=== PATIENT | female | born 1950 | race Caucasian/White ===

== ENCOUNTER 2022-08-30 20:12 | Emergency (ER) | payer MEDICARE, OTHER ==
[~2022-08-30] VITALS: Ht 160 cm; Wt 79.4 kg
[2022-08-30 20:35] LABS: BASOPHILS # (AUTO) 0.1 10^3/uL (0.0-0.1); BASOPHILS % (AUTO) 1 % (0-10); EOSINOPHILS # (AUTO) 0.4 10^3/uL (0.0-0.3); EOSINOPHILS % (AUTO) 4 % (0-10); HEMATOCRIT 49 % (35-52); HEMOGLOBIN 16.5 g/dL (11.5-16.0); LYMPHOCYTES # (AUTO) 3.8 10^3/uL (1.0-4.0); LYMPHOCYTES % (AUTO) 39 % (12-44); MEAN CORPUSCULAR HEMOGLOBIN 31 pg (25-34); MEAN CORPUSCULAR HGB CONC 34 g/dL (32-36); MEAN CORPUSCULAR VOLUME 92 fL (80-99); MONOCYTES # (AUTO) 0.6 10^3/uL (0.0-1.0); MONOCYTES % (AUTO) 7 % (0-12); NEUTROPHILS # (AUTO) 4.9 10^3/uL (1.8-7.8); NEUTROPHILS % (AUTO) 50 % (42-75); PLATELET COUNT 336 10^3/uL (130-400); WHITE BLOOD COUNT 9.9 10^3/uL (4.3-11.0)
[2022-08-30 20:48] LABS: FIBRIN DEGRADATION PRODUCTS 0.75 UG/ML (0.00-0.49); INR 0.9 (0.8-1.4); PROTHROMBIN TIME PATIENT 12.8 SEC (12.2-14.7)
[2022-08-30 20:54] LABS: BILIRUBIN,URINE NEGATIVE (NEGATIVE); CLARITY,URINE CLEAR; COLOR,URINE YELLOW; GLUCOSE, URINE (UA) NEGATIVE (NEGATIVE); KETONES,URINE NEGATIVE (NEGATIVE); LEUKOCYTE ESTERASE ,URINE NEGATIVE (NEGATIVE); NITRITE,URINE NEGATIVE (NEGATIVE); PH,URINE 6.5 (5-9); PROTEIN,URINE NEGATIVE (NEGATIVE)
[2022-08-30 20:55] LABS: ALANINE AMINOTRANSFERASE 15 U/L (0-55); ALKALINE PHOSPHATASE 104 U/L (40-136); BILIRUBIN,TOTAL 0.4 MG/DL (0.1-1.0); BUN/CREATININE RATIO 13; CALCIUM 9.7 MG/DL (8.5-10.1); CARBON DIOXIDE 25 MMOL/L (21-32); CHLORIDE 104 MMOL/L (98-107); CREATININE SERUM 0.84 MG/DL (0.60-1.30); GFR ESTIMATED 75; GLUCOSE 102 MG/DL (70-105); POTASSIUM 3.8 MMOL/L (3.6-5.0); SODIUM 142 MMOL/L (135-145); TOTAL PROTEIN 7.7 GM/DL (6.4-8.2)
[2022-08-30 21:05] LABS: BACTERIA,URINE NEGATIVE /HPF; SQUAMOUS EPITHELIAL CELL,UR 0-2 /HPF
--- NOTE | 2022-08-30 21:14 | Diagnostic Imaging Report ---
INDICATION: Stroke. FINDINGS: There is cardiomegaly. There is some minimal venous congestion. There is no pleural effusion or pneumothorax. The mediastinum is unremarkable. IMPRESSION: Cardiomegaly and some minimal central pulmonary venous congestion. Dictated by: Dictated on workstation # [id number]
--- NOTE | 2022-08-30 21:15 | ED Neurological Problem ---
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 PT DENIES PAIN, A&OX4. Source: patient Exam Limitations: no limitations Allergies and Home Medications Allergies Coded Allergies: Nvvjkvt-IZX-ArB Reductase Inhibitor (Verified Allergy, Unknown, 08/30/22) Past Owbaxro-Yfkmak-Hgsyev Hx Patient Social History Tobacco Use?: Yes Tobacco type used: Cigarettes Smoking Status: Current Everyday Smoker Use of E-Cig and/or Vaping dev: No Substance use?: No Alcohol Use?: No Immunizations Up To Date Influenza Vaccine Up-to-Date: No; Not Current First/Initial COVID19 Vaccinat: NONE Second COVID19 Vaccination Shyam: NONE Third COVID19 Vaccination Date: NONE COVID19 Vaccine Plate Former: NONE Physical Exam Vital Signs Vital Signs - First Documented 08/30/22 20:13 Temp 36.1 Pulse 88 Resp 95 B/P (MAP) 146/79 (101) Pulse Ox 95 O2 Delivery Room Air Capillary Refill : Less Than 3 Seconds Height, Weight, BMI Height: '" Weight: lbs. oz. kg; 31.00 BMI Method: Progress/Results/Core Measures Results/Orders Lab Results Laboratory Tests Test 08/30/22 20:26 08/30/22 20:38 08/30/22 20:44 Range/Units White Blood Count 9.9 4.3-11.0 10^3/uL Red Blood Count 5.29 H 3.80-5.11 10^6/uL Hemoglobin 16.5 H 11.5-16.0 g/dL Hematocrit 49 35-52 % Mean Corpuscular Volume 92 80-99 fL Mean Corpuscular Hemoglobin 31 25-34 pg Mean Corpuscular Hemoglobin Concent 34 32-36 g/dL Red Cell Distribution Width 13.6 10.0-14.5 % Platelet Count 336 130-400 10^3/uL Mean Platelet Volume 11.0 9.0-12.2 fL Immature Granulocyte % (Auto) 0 % Neutrophils (%) (Auto) 50 42-75 % Lymphocytes (%) (Auto) 39 12-44 % Monocytes (%) (Auto) 7 0-12 % Eosinophils (%) (Auto) 4 0-10 % Basophils (%) (Auto) 1 0-10 % Neutrophils # (Auto) 4.9 1.8-7.8 10^3/uL Lymphocytes # (Auto) 3.8 1.0-4.0 10^3/uL Monocytes # (Auto) 0.6 0.0-1.0 10^3/uL Eosinophils # (Auto) 0.4 H 0.0-0.3 10^3/uL Basophils # (Auto) 0.1 0.0-0.1 10^3/uL Immature Granulocyte # (Auto) 0.0 0.0-0.1 10^3/uL Prothrombin Time 12.8 12.2-14.7 SEC INR Comment 0.9 0.8-1.4 Activated Partial Thromboplast Time 35 24-35 SEC D-Dimer 0.75 H 0.00-0.49 UG/ML Sodium Level 142 135-145 MMOL/L Potassium Level 3.8 3.6-5.0 MMOL/L Chloride Level 104 98-107 MMOL/L Carbon Dioxide Level 25 21-32 MMOL/L Anion Gap 13 5-14 MMOL/L Blood Urea Nitrogen 11 7-18 MG/DL Creatinine 0.84 0.60-1.30 MG/DL Estimat Glomerular Filtration Rate 75 BUN/Creatinine Ratio 13 Glucose Level 102 70-105 MG/DL Calcium Level 9.7 8.5-10.1 MG/DL Corrected Calcium 9.7 8.5-10.1 MG/DL Total Bilirubin 0.4 0.1-1.0 MG/DL Aspartate Amino Transf (AST/SGOT) 16 5-34 U/L Alanine Aminotransferase (ALT/SGPT) 15 0-55 U/L Alkaline Phosphatase 104 40-136 U/L Troponin I < 0.028 <0.028 NG/ML Total Protein 7.7 6.4-8.2 GM/DL Albumin 4.0 3.2-4.5 GM/DL Urine Color YELLOW Urine Clarity CLEAR Urine pH 6.5 5-9 Urine Specific [place] 1.015 L 1.016-1.022 Urine Protein NEGATIVE NEGATIVE Urine Glucose (UA) NEGATIVE NEGATIVE Urine Ketones NEGATIVE NEGATIVE Urine Nitrite NEGATIVE NEGATIVE Urine Bilirubin NEGATIVE NEGATIVE Urine Urobilinogen 1.0 < = 1.0 MG/DL Urine Leukocyte Esterase NEGATIVE NEGATIVE Urine RBC (Auto) NEGATIVE NEGATIVE Urine RBC NONE /HPF Urine WBC NONE /HPF Urine Squamous Epithelial Cells 0-2 /HPF Urine Renal Epithelial Cells NONE /HPF Urine Crystals NONE /LPF Urine Bacteria NEGATIVE /HPF Urine Casts NONE /LPF Urine Mucus NEGATIVE /LPF Urine Culture Indicated NO Influenza Type A (RT-PCR) Not Detected Not Detecte Influenza Type B (RT-PCR) Not Detected Not Detecte SARS-CoV-2 RNA (RT-PCR) Not Detected Not Detecte Glucometer 138 H 70-110 MG/DL My Orders Orders - LAZARA KLEIN APRN Cbc With Automated Diff (08/30/22 20:28) Protime With Inr (08/30/22 20:28) Partial Thromboplastin Time (08/30/22 20:28) Comprehensive Metabolic Panel (08/30/22 20:) Fibrin Degradation Products (08/30/22:) Troponin I Ct (08/30/22 20:28) Ua Culture If Indicated (08/30/22 20:28) Chest 1 View, Ap/Pa Only (08/30/22 20:28) Ekg Tracing (08/30/22:) Accucheck Stat ONCE (08/30/22 20:28) Ed Iv/Invasive Line Start (08/30/22 20:28) Vital Signs Stroke Patient Q15M (08/30/22 20:28) Ct Head Wo-R/O Stroke (08/30/22 20:28) O2 (08/30/22 20:28) Intake & Output 06,14,22 (08/30/22 20:28) Monitor-Rhythm Ecg Trace Only (08/30/22 20:28) Dysphagia Screening Tool Q10MX1 (08/30/22 20:28) Lipid Panel (08/31/22 06:00) Covid 19 Inhouse Test (08/30/22 20:28) Influenza A And B By Pcr (08/30/22 20:28) Vital Signs/I&O 08/30/22 20:13 Temp 36.1 Pulse 88 Resp 95 B/P (MAP) 146/79 (101) Pulse Ox 95 O2 Delivery Room Air Blood Pressure Mean: 101 FSBG Bedside Testing Finger Stick Blood Glucose: 138 Departure Impression Primary Impression: Stroke-like episode Disposition: 01 HOME, SELF-CARE Condition: Improved Departure-Patient Inst. Decision time for Depature: 21:38 Referrals: NO,LOCAL PHYSICIAN (PCP/Family) Primary Care Physician Patient Instructions: Stroke (DC), Transient Ischemic Attack (DC) Add. Discharge Instructions: Plan: 1. Call your primary care provider and group sales representative tomorrow to schedule close follow-up from your emergency department visit. Recommend having outpatient carotid ultrasound and continued work-up due to stroke-like symptoms. 2. Continue your home medications as previously directed. 3. If you have slurred speech, upper or lower extremity weakness, facial drooping or any other new or concerning symptoms please return to the emergency department. 4. You have been provided copies of your imaging and blood work to take to your follow-up appointment. All discharge instructions reviewed with patient and/or family. Voiced understanding. LAZARA KLEIN CHIEF OPERATOR LOCK TENDER Aug 30, 2022 21:15
--- NOTE | 2022-08-30 21:20 | Diagnostic Imaging Report ---
PROCEDURE: CT head wo r/o stroke. TECHNIQUE: Multiple contiguous axial images were obtained through the brain without the use of intravenous contrast. Auto Exposure Controls were utilized during the CT exam to meet ALARA standards for radiation dose reduction. INDICATION: Neurologic deficit. FINDINGS: The ventricles and sulci are within normal limits. There is no hydrocephalus or cerebral edema. There is no midline shift or mass effect. There is no intracranial mass, hemorrhage, or extra-axial fluid collection. The visualized paranasal sinuses and mastoid air cells are clear. There are no regional areas of decreased attenuation appreciated to suggest an acute CVA. IMPRESSION: No acute intracranial abnormality. Dictated by: Dictated on workstation # [id number]
[2022-08-30 22:02] VITALS: BP 134/101
== END 2022-08-30 22:02 | disposition home or self-care (01) ==
LOC: ER 20:16
DX: R47.81 Slurred speech (principal); R26.2 Difficulty in walking, not elsewhere classified; F17.210 Nicotine dependence, cigarettes, uncomplicated; Z28.310 Unvaccinated for COVID-19; Z20.822 Contact with and (suspected) exposure to COVID-19
CPT/HCPCS: 36415; 70450; 71045; 80053; 81000; 82947; 84484; 85025; 85379; 85610; 85730; 87636; 93005; 93041

== ENCOUNTER → 2022-10-07 | Outpatient (CLI) | payer MEDICARE, OTHER ==
[2022-10-07] MEDS: CATHETER FLUSH 10 ML SYR IVP PRN (07:52)
[2022-10-07 08:34] VITALS: BP 146/93
--- NOTE | 2022-10-07 09:58 | NUCLEAR STRESS TEST ---
TREADMILL NUCLEAR STRESS TEST Date of procedure: 10/07/2022. Primary care provider: No local physician. Admitting physician: Denver Kirk Jr., MD. INDICATION: Abnormal electrocardiogram. BASELINE ELECTROCARDIOGRAM: Sinus rhythm with occasional premature ventricular complexes, low voltage in the chest leads and nonspecific T wave changes. STRESS TEST PROCEDURE: The patient was exercised for a total of 4 minutes and 0 seconds of the standard Tay protocol achieving a maximum MET level of 4.4. The resting heart rate was 69 bpm and the peak heart rate was 142 bpm, which represents 94% of the maximum predicted heart rate. The resting blood pressure was 146/93 mmHg and the peak blood pressure was 172/56 mmHg. This represents a normal heart rate and a normal blood pressure response to exercise. The test was stopped due to target heart rate attained. There was no chest discomfort during the test. There were isolated premature supraventricular complexes during the test. There were no significant stress induced electrocardiogram changes. The patient exhibited fair exercise capacity for age. NUCLEAR PROCEDURE: The patient was administered 10.7 mCi of intravenous technetium 99m Tetrofosmin at rest for the rest images. The patient was subsequently administered 29.4 mCi of intravenous technetium 99 M Tetrofosmin at peak stress for the stress images. Following an appropriate wait after each injection, imaging was obtained. The images were subsequently processed and reformatted in the usual views. Gated imaging was obtained. The image quality was adequate with a mild degree of gastrointestinal attenuation artifact. CT attenuation correction was used as a adjunct to standard imaging. Both the corrected and uncorrected images were reviewed for interpretation. NUCLEAR RESULTS: There was a large, severe intensity, partially reversible basal to mid lateral and apical defect with a small amount of inducible ischemia at the apex with a summed stress score of 22 and a summed difference score of 3. There was normal left ventricular chamber size with an end-diastolic volume of 54 mL and an end-systolic volume of 20 mL. There was no evidence of transient ischemic dilatation. The TID ratio was 1.18. There was lateral hypokinesis. There was normal left ventricular systolic function with a calculated ejection fraction of 62%. IMPRESSION: 1. Normal heart rate and blood pressure response to exercise. 2. There was no exercise-induced chest discomfort or electrocardiogram changes. 3. There were isolated premature supraventricular complexes throughout the test. 4. The patient exhibited fair exercise capacity for age at 4 minutes of the Tay protocol being maintained in stage 1. 5. There was a large, severe intensity, partially reversible basal to mid lateral and apical defect with a small amount of inducible ischemia at the apex with a summed stress score of 22 and a summed difference score of 3. 6. There was lateral hypokinesis with overall normal left ventricular systolic function with a calculated ejection fraction of 62%. 7. This is an abnormal result representing a moderate risk for possible future coronary ischemic events. Certain portions of this document may have been dictated utilizing voice recognition technology. Inherent to this technology, typographical and grammatical errors may exist. As much as I am diligent to identify and correct these mistakes, some errors may remain in the document. DENVER KIRK JR, MD Oct 07, 2022 09:58
== END ==
LOC: CARD 07:16
PROVIDERS: ATTEND Internal Medicine Cardiovascular Disease
DX: I25.89 Other forms of chronic ischemic heart disease (principal); I51.89 Other ill-defined heart diseases
CPT/HCPCS: 78452; 93017; A9502

== ENCOUNTER 2022-10-19 07:08 | Day surgery (SDC) | payer MEDICARE, OTHER ==
[~2022-10-19] VITALS: Ht 160.2 cm; Wt 79.7 kg
[2022-10-19] MEDS ORDERED: LIDOCAINE 1% INJ 20 ML VIAL ONE ×2 (07:11→09:06)
[2022-10-19] MEDS ORDERED: HEParin (CATH LAB) 2,000 ML IV ONE (07:12)
[2022-10-19] MEDS ORDERED: NS IV 1000 ML 1,000 ML ONE (07:12)
[2022-10-19] MEDS ORDERED: LIDOCAINE 1% INJ 20 ML VIAL INJ ONE (07:15)
[2022-10-19] MEDS ORDERED: NS IV 1000 ML 1,000 ML IV SCH (07:15)
[2022-10-19 07:27] VITALS: BP 126/83
[2022-10-19 07:35] LABS: HEMATOCRIT 50 % (35-52); HEMOGLOBIN 16.8 g/dL (11.5-16.0); MEAN CORPUSCULAR HEMOGLOBIN 31 pg (25-34); MEAN CORPUSCULAR HGB CONC 34 g/dL (32-36); MEAN CORPUSCULAR VOLUME 93 fL (80-99); MEAN PLATELET VOLUME 10.4 fL (9.0-12.2); PLATELET COUNT 303 10^3/uL (130-400); WHITE BLOOD COUNT 10.6 10^3/uL (4.3-11.0)
[2022-10-19] MEDS ORDERED: GABA300C PO (07:46)
[2022-10-19] MEDS ORDERED: LACT1TAB25 PO (07:46)
[2022-10-19] MEDS ORDERED: CHLO500T4 PO (07:46)
[2022-10-19] MEDS ORDERED: LATA7.5D OU (07:46)
[2022-10-19] MEDS ORDERED: ASCO500T75 PO (07:46)
[2022-10-19] MEDS ORDERED: ASPI-1238 PO (07:46)
[2022-10-19] MEDS ORDERED: VILA20TA PO (07:46)
[2022-10-19] MEDS ORDERED: ATOR40TA70 PO (07:46)
[2022-10-19] MEDS ORDERED: MTP25TSR PO (07:46)
[2022-10-19] MEDS ORDERED: NABU500T8 PO (07:46)
[2022-10-19] MEDS ORDERED: fentaNYL INJ 100 MCG/2 ML AMP ONE ×2 (07:49→12:36)
[2022-10-19] MEDS ORDERED: MIDAZOLAM 5 MG/5 ML (VERSED) VIAL ONE (07:49)
[2022-10-19 07:55] LABS: ALBUMIN 3.9 GM/DL (3.2-4.5); BILIRUBIN,TOTAL 0.6 MG/DL (0.1-1.0); CALCIUM 9.3 MG/DL (8.5-10.1); CREATININE SERUM 0.82 MG/DL (0.60-1.30); POTASSIUM 4.1 MMOL/L (3.6-5.0); TOTAL PROTEIN 7.1 GM/DL (6.4-8.2)
[2022-10-19 08:00] LABS: INR 0.9 (0.8-1.4); PROTHROMBIN TIME PATIENT 13.1 SEC (12.2-14.7)
[2022-10-19] MEDS ORDERED: HEParin (CATH LAB) 1,000 ML IV ONE (08:50)
[2022-10-19] MEDS ORDERED: EPTIFIBATIDE BOLUS 10 ML IV ONE ×2 (09:29→09:31)
[2022-10-19] MEDS ORDERED: HEParin 1000 UNIT/ML (10ML VIAL) FOR BOLUS ONE (09:29)
[2022-10-19] MEDS ORDERED: NITRO DRIP 25000 MCG/D5W 0 ML IV ONE (09:31)
[2022-10-19] MEDS ORDERED: CLOPIDOGREL 300 MG (PLAVIX) TABLET PO ONE (09:55)
[2022-10-19] MEDS ORDERED: ASPIRIN 81 MG CHEW (CHILDREN'S ASA) ONE (09:55)
--- NOTE | 2022-10-19 10:12 | Cardiac Procedure Note-CS/ASA ---
Pre-Procedure Note Pre-Op Procedure Note Date of Available H&P: Oct 11, 2022 Date H&P Reviewed: Oct 19, 2022 Time H&P Reviewed: 08:45 History & Physical: H&P Reviewed, No changes noted Conscious Sedation Pre-Proced ASA Score 3 For ASA 3 and 4: Consider anesthesia and medical clearance. Also, for patients with a history of failed moderate sedation consider anesthesia. Airway Lungs Heart ASA score ASA 1: a normal healthy patient ASA 2: a patient with a mild systemic disease (mid diabetes, controlled hypertension, obesity ASA 3: a patient with a severe systemic disease that limits activity (angina, COPD, prior Myocardial infarction) ASA 4: a patient with an incapacitating disease that is a constant threat to life (CHF, renal failure) ASA 5: a moribund patient not expected to survive 24 hrs. (ruptured aneurysm) ASA 6: a declared brain- patient whose organs are being harvested. For emergent operations, add the letter E after the classification Mallampati Classification Grade 2 Sedation Plan Analgesia, Amnesia, Plan communicated to team members The patient is an appropriate candidate to undergo the planned procedure, sedation, and anesthesia. The patient immediately re-assessed prior to indication. DEBORAH ADKINS MD FACP FAC CCDS Oct 19, 2022 10:12
[2022-10-19] MEDS ORDERED: PATIENT MAY USE OWN MEDS, ALL PO SCH (10:15)
[2022-10-19 10:45] VITALS: BP 128/64
[2022-10-19 11:00] VITALS: BP 81/69
[2022-10-19] MEDS ORDERED: ATROPINE INJECTION 1 MG/10 ML SYR (ABBOTT) ONE (12:37)
--- NOTE | 2022-10-19 12:50 | Tele-ICU Progress Note ---
Progress Note Video assessment done , Hemodynamically stable Available charting reviewed, discussed with RN NO TELE-ICU CONSULT REQUESTED CONTINUE TO MONITOR PER USUAL TELE-ICU PROTOCOL No need for Tele-ICU interventions Plans as delineated by bedside physicians / consultants Focused Exam Height, Weight, BMI Height: '" Weight: lbs. oz. kg; 31.99 BMI Method: AUGUSTO CARL MD Oct 19, 2022 12:50
[2022-10-19] MEDS ORDERED: GABAPENTIN 300 MG (NEURONTIN) CAP PO SCH (13:00)
[2022-10-19] MEDS ORDERED: PATIENT MAY USE OWN MED,SINGLE MED PO SCH (14:30)
--- NOTE | 2022-10-19 14:31 | CARDIAC CATHETERIZATION ---
DATE OF SERVICE: 10/19/2022 CARDIAC CATHETERIZATION AND CORONARY INTERVENTION REPORT INDICATION: The patient is a 72-year-old lady who had a myocardial perfusion imaging study done by Dr. Kirk that showed apical infarction and lateral wall ischemia. Ejection ejection fraction on myocardial perfusion imaging was reported to be 62%. Because of the abnormal stress test and lateral wall ischemia, cardiac catheterization was recommended and informed consent was obtained. DESCRIPTION OF PROCEDURE: She was brought to the cardiac catheterization laboratory in a fasting state. Right groin was prepared and draped in the usual sterile fashion. 1% lidocaine was used for local anesthesia. Modified Seldinger technique was used to advance a 5-Faroese sheath in right femoral artery, 5-Faroese JR4 catheter was used for left coronary angiography; 5-Faroese JR4 catheter was used for right coronary angiography; 5-Faroese pigtail catheter was used for left heart catheterization. Left ventricular pressures were measured. Left ventricular angiography was not performed. The catheter was pulled back and removed. Subsequently, we carried out percutaneous intervention to the left circumflex artery that is described below. Percutaneous intervention to the left circumflex: The left circumflex artery was exhibiting 95% mid to distal vessel stenosis. This was significant because myocardial perfusion imaging had indicated lateral wall ischemia. Accordingly, percutaneous intervention was carried out. We exchanged the sheath over a wire for a 6-Faroese sheath. We used a 6-Faroese EBU 4 catheter to engage the left coronary artery. We advanced a BMW wire across the lesion and the tip was placed in the distal vessel. We carried out balloon angioplasty with a 2.0 x 15 mm balloon and stented the lesion with a Skypoint 2.25 x 8 mm stent that was deployed at 15 atmospheres achieving a final stent lumen size of 2.51 mm. Subsequent angiography revealed 0% residual stenosis. The stenosis improved from 80% to 0% and the distal flow was MADAI 2 before the intervention and MADAI 3 after the intervention. The patient tolerated the procedure well. Angioplasty equipment was removed. Sheath was sutured in place and the patient was transferred to the floor for manual sheath removal. HEMODYNAMICS: Left ventricular end diastolic pressure, following coronary angiography was 13 mmHg. There is no significant pressure gradient on pullback across the RCA valve. Ascending aortic pressure was 121/61 with a mean of 68 mm. CORONARY ANGIOGRAPHY: Diffuse coronary calcification seen. Left main coronary artery does not exhibit significant disease. Left anterior descending has moderate to moderately severe disease in its proximal portion and is occluded in its mid portion. There are extensive left to left collaterals. The left circumflex artery is codominant. It had a 95% stenosis in its mid to distal portion that was successfully stented with Skypoint 2.25 x 8 mm stent that was deployed at 15 atmospheres and that reduced the stenosis from 95% to 0% and improved the distal flow from MADAI 2 to MADAI 3. The rest of the left circumflex artery has diffuse moderate disease. The right coronary artery is codominant and has a 70% ostial stenosis and relatively long 80% mid vessel stenosis. CONCLUSION: 1. Coronary artery disease consisting of chronic mid vessel occlusion of the left anterior descending with left to left collaterals, 95% mid vessel stenosis of a codominant left circumflex that was successfully stented with Skypoint 2.25 x 8 mm stent, and 70% ostial and 80% mid vessel stenosis of a codominant right coronary. 2. Left ventricular end-diastolic pressure 13 mmHg. Job ID: [id number] DocumentID: [id number] Dictated Date: 10/19/2022 10:11:35 General Freight Agent Date: 10/19/2022 14:29:00 Dictated By: DEBORAH ADKINS MD; ISELA; ANNABELLAP; ANNABELLAC; SUZANNE
--- NOTE | 2022-10-19 17:38 | OPERATIVE REPORT ---
DATE OF SERVICE: 10/19/2022 PREOPERATIVE DIAGNOSIS: Transient ischemic attack of undetermined etiology (cryptogenic stroke). POSTOPERATIVE DIAGNOSIS: Transient ischemic attack of undetermined etiology (cryptogenic stroke). PROCEDURE: Implantable loop recorder implantation. INDICATIONS: The patient is a 72-year-old lady who has had transient ischemic attacks, from presumably thromboembolic, without any known source. Implantable loop recorder implantation was carried out after having obtained an informed consent. [facility] The left prepectoral area was prepared and draped in the usual sterile fashion. 1% lidocaine with local anesthesia. The tools provided with the Medtronic II device were used to make a subcutaneous pocket anterior to the fourth intercostal space on the left side and the device was placed in the pocket and the skin edges were closed using Dermabond and Steri-Strips. The serial number of the device is [id number]. She tolerated the procedure well. Job ID: [id number] DocumentID: [id number] Dictated Date: 10/19/2022 10:30:55 Clean Up Helper Banquet Date: 10/19/2022 17:36:00 Dictated By: DEBORAH ADKINS MD; ISELA; FACP; FACC;
[2022-10-19] MEDS: NS IV 1000 ML 1,000 ML IV SCH ×2 (18:04→19:27)
[2022-10-19 19:30] VITALS: BP 113/74
[2022-10-19 20:00] VITALS: BP 122/70
[2022-10-19] MEDS: GABAPENTIN 300 MG (NEURONTIN) CAP PO SCH (20:51)
[2022-10-19] MEDS: NABUMETONE 500 MG PO SCH (20:54)
[2022-10-19] MEDS: CHLORZOXAZONE 500 MG PO SCH (20:54)
[2022-10-19 22:00] VITALS: BP 111/74
[2022-10-20] VITALS (7 sets, daily range): BP systolic 100–115; BP diastolic 65–76
[2022-10-20] MEDS: NS IV 1000 ML 1,000 ML IV SCH (05:29)
--- NOTE | 2022-10-20 07:53 | Progress Note - Cardiology ---
Cardiology SOAP Progress Note Subjective: Sitting up in bed States she feels well No c/o CP, SOB, palpitations No c/o groin discomfort No c/o n/v/d or abd pain Objective: I&O/Vital Signs 10/20/22 10/20/22 10/20/22 10/20/22 03:33 04:00 06:00 07:00 Temp 36.3 Pulse 70 66 73 Resp 20 18 10 B/P (MAP) 100/66 (77) 115/72 (86) 107/73 (84) Pulse Ox 91 94 92 O2 Delivery Room Air Room Air 10/20/22 10/20/22 10/20/22 10/20/22 07:00 07:06 08:00 08:00 Pulse 73 63 69 Resp 10 12 B/P (MAP) 107/73 (84) 110/65 (80) Pulse Ox 92 93 O2 Delivery Room Air Room Air Room Air 10/20/22 10/20/22 10/20/22 10/20/22 08:00 08:00 11:30 12:00 Temp 36.9 36.7 Pulse 86 73 74 76 Resp 16 12 17 12 B/P (MAP) 107/73 (84) 110/65 (80) 108/76 (87) 108/76 (87) Pulse Ox 97 93 95 96 O2 Delivery Room Air Room Air Room Air Room Air 10/20/22 00:00 Intake Total 2030 ml Output Total 0 ml Balance 2030 ml Side: right Groin site without hematoma: Yes Condition: DP/PT pulses palpable Bruising: mild bruising Constitutional: AAO x 3, well-developed, well-nourished Respiratory: No accessory muscle use, No respiratory distress; chest expansion is symmetric, chest is bilaterally symmetric, lungs clear to auscultation Cardiovascular: regular rate-rhythm; No JVD; S1 and S2 Gastrointestional: No tender; soft, round, audible bowel sounds Extremities: no lower extremity edema bilateral Neurologic/Psychiatric: grossly intact (moves all extremities) Skin: No rash on exposed areas, No ulcerations on exposed areas Results/Procedures: Labs Laboratory Tests 10/20/22 08:23: White Blood Count 7.9, Red Blood Count 4.47, Hemoglobin 14.1, Hematocrit 41, Mean Corpuscular Volume 92, Mean Corpuscular Hemoglobin 32, Mean Corpuscular Hemoglobin Concent 34, Red Cell Distribution Width 13.3, Platelet Count 228, Mean Platelet Volume 10.6, Sodium Level 142, Potassium Level 3.7, Chloride Level 112H, Carbon Dioxide Level 20L, Anion Gap 10, Blood Urea Nitrogen 11, Creatinine 0.75, Estimat Glomerular Filtration Rate 86, BUN/Creatinine Ratio 15, Glucose Level 87, Calcium Level 8.5 Microbiology 10/19/22 MRSA Screen - Final, Complete MRSA not isolated A/P: Assessment: CAD - Exercise cardiolite of 10-07-[address] Kirk showed: There was a large, severe intensity, partially reversible basal to mid lateral and apical defect with a small amount of inducible ischemia at the apex with a summed stress score of 22 and a summed difference score of 3. There was lateral hypokinesis with overall normal left ventricular systolic function with a calculated ejection fraction of 62%. - Cardiac cath of 10-19-22: Coronary artery disease consisting of chronic mid vessel occlusion of the left anterior descending with left to left collaterals, 95% mid vessel stenosis of a codominant left circumflex that was successfully stented with Skypoint 2.25 x 8 mm stent, and 70% ostial and 80% mid vessel stenosis of a codominant right coronary. Left ventricular end-diastolic pressure 13 mmHg. ECHOCARDIOGRAM (12/28/2021) at at [facility] in [place], [place] by Dr. Morel: - Technically difficult examination. Definity contrast was used to enhance visualization. Limited two-dimensional echocardiogram was performed to check EF. Estimated left ventricular ejection fraction is 45%. There are regional wall motion abnormalities. Mid to basal anterolateral and inferolateral wall h ypokinetic, mid to basal inferoseptal wall and inferior wall hypokinetic. H/O TIA/CVA in Aug 2022 - seen [facility] - S/P ILR implant 10-19-22 HLD Tobaccoism - cessation advised Obesity Plan: S/P cardiac cath with successful coronary intervention on 10-19-22 OK to discharge home, continue DAPT, BB and statin F/U on Tuesday for ILR dressing change F/U with us in one week BOWEN BASS Oct 20, 2022 07:53
[2022-10-20] MEDS ORDERED: CLOP75TA28 PO (08:28)
--- NOTE | 2022-10-20 08:30 | Discharge Inst-Cardiology ---
Discharge Inst-Cardiac Discharge Medications New Medications: Clopidogrel Bisulfate (Clopidogrel) 75 Mg Tablet 75 MG PO DAILY, #90 TAB 3 Refills Continued Medications: Ascorbic Acid (Vitamin C with Ashley Hips) 500 Mg Tablet 500 MG PO DAILY, TAB Aspirin (Aspirin EC) 81 Mg Tablet.dr 81 MG PO DAILY, TAB Atorvastatin Calcium (Atorvastatin Calcium) 40 Mg Tablet 40 MG PO DAILY, TAB Chlorzoxazone (Chlorzoxazone) 500 Mg Tablet 500 MG PO BID, TAB Gabapentin (Neurontin) 300 Mg Capsule 300 MG PO TID, CAP Lactobacillus Acidophilus (Probiotic Acidophilus) 2 Billion Cell Tablet 1 EACH PO DAILY, TAB Latanoprost/Pf (Latanoprost 0.005% Eye Drop) 0.005 % Drops 1 DROP OU HS, DROPS Metoprolol Succinate (Metoprolol Succinate) 25 Mg Tab.er.24h 12.5 MG PO DAILY, TAB Nabumetone (Nabumetone) 500 Mg Tablet 500 MG PO BID, TAB Vilazodone Hydrochloride (Viibryd) 20 Mg Tablet 20 MG PO DAILY, TAB New, Converted or Re-Newed RX: Transmitted to Pharmacy Patient Instructions Patient Instructions: Please schedule follow up appointment for this Tuesday, Oct 22, 2022 for a dressing removal and site check with Dr. Freeman's nurse Please keep already scheduled f/u appt to see Dr. Freeman on Oct 29, 2022 BOWEN BASS Oct 20, 2022 08:30
[2022-10-20 08:31] LABS: HEMATOCRIT 41 % (35-52); HEMOGLOBIN 14.1 g/dL (11.5-16.0); MEAN CORPUSCULAR HEMOGLOBIN 32 pg (25-34); MEAN CORPUSCULAR HGB CONC 34 g/dL (32-36); MEAN CORPUSCULAR VOLUME 92 fL (80-99); MEAN PLATELET VOLUME 10.6 fL (9.0-12.2); PLATELET COUNT 228 10^3/uL (130-400); WHITE BLOOD COUNT 7.9 10^3/uL (4.3-11.0)
[2022-10-20 08:50] LABS: CALCIUM 8.5 MG/DL (8.5-10.1); CREATININE SERUM 0.75 MG/DL (0.60-1.30); POTASSIUM 3.7 MMOL/L (3.6-5.0)
[2022-10-20] MEDS ORDERED: ACIDOPHILUS PROBIOTIC PO SCH (09:00)
[2022-10-20] MEDS ORDERED: VIIBRYD 20 MG PO SCH (09:00)
[2022-10-20] MEDS ORDERED: ASCORBIC ACID (VIT C) 500 MG TABLET PO SCH (09:00)
[2022-10-20] MEDS ORDERED: ASPIRIN 81 MG CHEW (CHILDREN'S ASA) PO SCH (09:00)
[2022-10-20] MEDS ORDERED: CLOPIDOGREL 75 MG (PLAVIX) TABLET PO SCH (09:00)
[2022-10-20] MEDS: CHLORZOXAZONE 500 MG PO SCH (09:26)
[2022-10-20] MEDS: NABUMETONE 500 MG PO SCH (09:28)
[2022-10-20] MEDS: GABAPENTIN 300 MG (NEURONTIN) CAP PO SCH ×2 (09:30→13:15)
--- NOTE | 2022-10-20 12:28 | Progress Note - Cardiology ---
Cardiology SOAP Progress Note Subjective: No cp or palp or syncope No n/v/d No focal weakness No gen weakness No shortness of breath No swelling Objective: I&O/Vital Signs 10/20/22 10/20/22 10/20/22 10/20/22 01:00 02:00 03:33 04:00 Temp 36.3 Pulse 70 65 70 Resp 20 20 B/P (MAP) 101/69 (80) 100/66 (77) Pulse Ox 92 91 O2 Delivery Room Air 10/20/22 10/20/22 10/20/22 10/20/22 06:00 07:00 07:00 07:06 Pulse 66 73 73 63 Resp 18 10 10 B/P (MAP) 115/72 (86) 107/73 (84) 107/73 (84) Pulse Ox 94 92 92 O2 Delivery Room Air Room Air 10/20/22 10/20/22 10/20/22 10/20/22 08:00 08:00 08:00 08:00 Temp 36.9 Pulse 69 86 73 Resp 12 16 12 B/P (MAP) 110/65 (80) 107/73 (84) 110/65 (80) Pulse Ox 93 97 93 O2 Delivery Room Air Room Air Room Air Room Air 10/20/22 11:30 Pulse 74 Resp 17 B/P (MAP) 108/76 (87) Pulse Ox 95 O2 Delivery Room Air 10/20/22 00:00 Intake Total 2030 ml Output Total 0 ml Balance 2030 ml Side: right Groin site without hematoma: Yes Condition: DP/PT pulses palpable Bruising: mild bruising Constitutional: AAO x 3, well-developed, well-nourished Respiratory: No accessory muscle use, No respiratory distress; chest expansion is symmetric, chest is bilaterally symmetric, lungs clear to auscultation Cardiovascular: regular rate-rhythm; No JVD; S1 and S2 Gastrointestional: No tender; soft, round, audible bowel sounds Extremities: no lower extremity edema bilateral Neurologic/Psychiatric: other (moves all limbs equally) Skin: No rash on exposed areas, No ulcerations on exposed areas Results/Procedures: Labs Laboratory Tests 10/20/22 08:23: White Blood Count 7.9, Red Blood Count 4.47, Hemoglobin 14.1, Hematocrit 41, Mean Corpuscular Volume 92, Mean Corpuscular Hemoglobin 32, Mean Corpuscular Hemoglobin Concent 34, Red Cell Distribution Width 13.3, Platelet Count 228, Mean Platelet Volume 10.6, Sodium Level 142, Potassium Level 3.7, Chloride Level 112H, Carbon Dioxide Level 20L, Anion Gap 10, Blood Urea Nitrogen 11, Creatinine 0.75, Estimat Glomerular Filtration Rate 86, BUN/Creatinine Ratio 15, Glucose Level 87, Calcium Level 8.5 Microbiology 10/19/22 MRSA Screen - Final, Complete MRSA not isolated Laboratory Tests 10/19/22 07:33 10/20/22 08:23 A/P: Assessment: CAD - Exercise cardiolite of 10-07-[address] Krik showed: There was a large, severe intensity, partially reversible basal to mid lateral and apical defect with a small amount of inducible ischemia at the apex with a summed stress score of 22 and a summed difference score of 3. There was lateral hypokinesis with overall normal left ventricular systolic function with a calculated ejection fraction of 62%. - Cardiac cath of 10-19-22: Coronary artery disease consisting of chronic mid vessel occlusion of the left anterior descending with left to left collaterals, 95% mid vessel stenosis of a codominant left circumflex that was successfully stented with Skypoint 2.25 x 8 mm stent, and 70% ostial and 80% mid vessel stenosis of a codominant right coronary. Left ventricular end-diastolic pressure 13 mmHg. ECHOCARDIOGRAM (12/28/2021) at at [facility] in [place], [place] by Dr. Morel: - Technically difficult examination. Definity contrast was used to enhance visualization. Limited two-dimensional echocardiogram was performed to check EF. Estimated left ventricular ejection fraction is 45%. There are regional wall motion abnormalities. Mid to basal anterolateral and inferolateral wall h ypokinetic, mid to basal inferoseptal wall and inferior wall hypokinetic. H/O TIA/CVA in Aug 2022 - seen [facility] - S/P ILR implant 10-19-22 HLD Tobaccoism - cessation advised Obesity Plan: S/P cardiac cath with successful coronary intervention on 10-19-22 OK to discharge home, continue DAPT, BB and statin F/U on Tuesday for ILR dressing change F/U with us in one week DEBOARH ADKINS MD FACP FAC CCDS Oct 20, 2022 12:28
== END 2022-10-20 13:00 | disposition home or self-care (01) ==
LOC: CATH 07:08 → ICU 10:45 → CATH 10-20 13:00
PROVIDERS: ATTEND Internal Medicine Cardiovascular Disease
DX: I25.10 Atherosclerotic heart disease of native coronary artery without angina pectoris (principal); I63.9 Cerebral infarction, unspecified; F17.210 Nicotine dependence, cigarettes, uncomplicated; E66.9 Obesity, unspecified; E78.2 Mixed hyperlipidemia; Z68.32 Body mass index [BMI] 32.0-32.9, adult; Z86.73 Personal history of transient ischemic attack (TIA), and cerebral infarction without residual deficits; Z79.82 Long term (current) use of aspirin; Z28.310 Unvaccinated for COVID-19
CPT/HCPCS: 33285; 80048; 80053; 85027 ×2; 85610; 85730; 87081; 93005; 93458; C1725; C1764; C1769; C1874; C1887 ×2; C1894 ×2; C9600; 36415

== ENCOUNTER → 2023-05-26 | Outpatient (CLI) | payer MEDICARE, OTHER ==
[~2023-05-26] MED LIST: ASCO500T75 PO; ASPI-1238 PO; ATOR40TA70 PO; CATHETER FLUSH 10 ML SYR IVP PRN; CHLO500T4 PO; CLOP75TA28 PO; GABA300C PO; LACT1TAB25 PO; LATA7.5D OU; MTP25TSR PO; NABU500T8 PO; VILA20TA PO
--- NOTE | 2023-05-27 10:45 | Diagnostic Imaging Report ---
INDICATION: Initial staging solitary pulmonary nodule. TECHNIQUE: Serum blood glucose level at the time of injection is 117 mg/dL. Patient was administered 10.6 mCi F-18 FDG intravenously in the left antecubital location and PET imaging was performed from the top of the skull to mid thighs. Noncontrast CT was also performed for attenuation correction and anatomic correlation. CORRELATION is made with the outside CT chest study from 05/06/2023. No prior PET/CT studies are available for comparison. FINDINGS: There is symmetric activity throughout the brain. Soft tissues of the neck are unremarkable. No mediastinal or hilar hypermetabolism is identified. The small nodule in the posterolateral subpleural left lower lobe does not demonstrate FDG avidity. No pulmonary parenchymal hypermetabolism is identified. Physiologic activity throughout the abdomen and pelvis is noted. No suspicious areas of hypermetabolism are identified. IMPRESSION: Unremarkable PET/CT study. Specifically, the nodular density in the subpleural left lower lobe does not demonstrate FDG avidity. Even so, continued close low-dose CT chest monitoring would be recommended to confirm stability. Dictated by: Dictated on workstation # [id number]
== END ==
LOC: RAD 09:27
PROVIDERS: ATTEND Nurse Practitioner
DX: R91.8 Other nonspecific abnormal finding of lung field (principal)
CPT/HCPCS: 78815; 82947; A9552